=== PATIENT | female | born 1995 | race Asian ===

== ENCOUNTER 2018-10-28 14:56 | Emergency (ER) | payer MEDICAID ==
[~2018-10-28] VITALS: Ht 157.5 cm; Wt 85.7 kg
[2018-10-28 15:28] VITALS: BP 110/72; Ht 157.5 cm; Wt 85.7 kg
== END 2018-10-28 17:40 | disposition home or self-care (01) ==
LOC: ED 14:56
DX: Z76.0 Encounter for issue of repeat prescription (principal)